=== PATIENT | male | born 2000 | race Caucasian/White ===

== ENCOUNTER 2024-05-17 17:33 | Emergency (ER) | payer OTHER ==
[~2024-05-17] VITALS: Ht 182.9 cm; Wt 90.9 kg
[2024-05-17 17:38] VITALS: TEMP 98.2
[2024-05-17] MEDS ORDERED: NS 1,000 ML IV ONE (18:00)
[2024-05-17] MEDS ORDERED: Ondansetron 4 MG/2 ML VIAL IV ONE (18:00)
[2024-05-17 19:35] VITALS: BP 128/68; PULSE 83
== END 2024-05-17 19:35 | disposition home or self-care (01) ==
LOC: COL.ER 17:33
DX: R11.10 Vomiting, unspecified (principal)
CPT/HCPCS: J2405; J7030